=== PATIENT | male | born 1985 | race Caucasian/White ===

== ENCOUNTER 2017-01-03 13:49 | Emergency (ER) | payer BC ==
[~2017-01-03] VITALS: Ht 172.7 cm; Wt 68.0 kg
[~2017-01-03 13:49] MED LIST: IBUP600T26 PO
[2017-01-03 13:50] VITALS: BP 137/75; PULSE 84; RESP 15; TEMP 98.2; O2SAT 98
[2017-01-03] MEDS ORDERED: IBUP-232 PO (14:20)
--- NOTE | 2017-01-03 14:51 | PD ---
HPI . left elbow redness, pain, swelling Chief Complaint: Skin Problem Time Seen by Provider: 14:30 Travel History International Travel<30 days: No Contact w/Intl Traveler<30days: No Traveled to known affect area: No History of Present Illness HPI 31-year-old male here with complaints of left elbow pain, redness, swelling for several days. I was asked by the triage nurse to look at the patient immediately as patient reported that he needed to leave for some type of green party. I go in to see patient and he is c/o left elbow pain, redness and swelling. His joint is visibly swollen and erythematous. He will need a medical bed for possible septic joint. Our nurse discussed with him and he decided to leave, but told the nurse he would return later today. [facility] Social History Alcohol Use: Yes (BEER, 2/MONTH, LAST USED 5 NIGHTS AGO) Tobacco Use: No Substance Use: No Allergies-Medications (Allergen,Severity, Reaction): Coded Allergies: No Known Allergies (Verified , 01/03/17) Reported Meds & Prescriptions Reported Meds & Active Scripts Active Reported Ibuprofen 600 Mg Tab 600 Mg PO QID PRN Review of Systems General / Constitutional: No: Fever Eyes: No: Visual changes HENT: No: Headaches Cardiovascular: No: Chest Pain or Discomfort Respiratory: No: Shortness of Breath Gastrointestinal: No: Abdominal Pain Genitourinary: No: Dysuria Musculoskeletal: Positive: Pain (left elbow) Skin: No Rash Neurologic: No: Weakness Psychiatric: No: Depression Endocrine: No: Polydipsia Hematologic/Lymphatic: No: Easy Bruising Physical Exam Narrative left elbow: visibly edematous, erythematous Data Data Last Documented VS Vital Signs Date Time Temp Pulse Resp B/P Pulse Ox O2 Delivery O2 Flow Rate FiO2 01/03/17 13:50 98.2 84 15 137/75 98 MDM Medical Decision Making Medical Screen Exam Complete: Yes Emergency Medical Condition: Yes Medical Record Reviewed: Yes Differential Diagnosis septic joint, cellulitis, bursitis Narrative Course 31-year-old male here with complaints of left elbow pain, redness, swelling for several days. I was asked by the triage nurse to look at the patient immediately as patient reported that he needed to leave for some type of green party. I go in to see patient and he is c/o left elbow pain, redness and swelling. His joint is visibly swollen and erythematous. He will need a medical bed for possible septic joint. Our nurse discussed with him and he decided to leave, but told the nurse he would return later today. Diagnosis Primary Impression: Left against medical advice Patient Instructions: General Instructions Departure Forms: Tests/Procedures Disposition: 07 AGAINST MEDICAL ADVICE Elizabeth Hagen Jan 03, 2017 14:51
== END 2017-01-03 14:59 | disposition left against medical advice (07) ==
LOC: NETRI 13:49
DX: M25.522 Pain in left elbow (principal); R22.32 Localized swelling, mass and lump, left upper limb; L53.9 Erythematous condition, unspecified; Z53.29 Procedure and treatment not carried out because of patient's decision for other reasons
CPT/HCPCS: 99282